=== PATIENT | female | born 1955 | race Two or more races ===

== ENCOUNTER → 2024-02-06 | Outpatient (CLI) | payer MEDICARE, SELFPAY ==
--- NOTE | 2024-02-06 09:00 | XR_ITS ---
Examination: Screening digital mammography, bilateral Computer aided detection 3-D breast Tomosynthesis, bilateral Date and time of exam: February 06, 2024 0817 hours Compared to mammograms dating to December 30, 2016 Indication: Screening Technique: Nonmagnified MLO, CC views of the breasts to been obtained, reconstructed from 3-D Tomosynthesis images. R2 computer aided detection program utilized for evaluation of suspicious masses and/or abnormal calcifications. 3-D Tomosynthesis images obtained. Findings: Scattered areas of fibroglandular density. Benign calcifications. No interval suspicious masses Impression: BI-RADS category II: Benign Findings. Recommend 1 year follow-up mammogram.
== END | disposition home or self-care (01) ==
LOC: CDIM 08:09
PROVIDERS: Referring Provider Physician Assistant; Visit Provider Physician Assistant
DX: Z12.31 Encounter for screening mammogram for malignant neoplasm of breast (principal); R92.323 Mammographic fibroglandular density, bilateral breasts; R92.1 Mammographic calcification found on diagnostic imaging of breast
CPT/HCPCS: 77063; 77067

== ENCOUNTER → 2024-03-28 | Outpatient (CLI) | payer MEDICARE, SELFPAY ==
--- NOTE | 2024-03-28 10:26 | XR_ITS ---
Examination: Thoracic spine 3 views Technique one AP lateral coned lateral upper dorsal spine 3 views Exam date and time: March 28, 2024 1038 hours INDICATIONS: Mid back pain 5 years getting worse. FINDINGS: Severe osteopenia Thoracic dextroscoliosis 10 degrees Mild thoracic spondylosis No acute thoracic fracture Mild to moderate diffuse thoracic degenerative disc disease IMPRESSION: Mild to moderate diffuse thoracic degenerative disc disease
== END | disposition home or self-care (01) ==
PROVIDERS: PCP Physician Assistant; Referring Provider Physician Assistant; Visit Provider Physician Assistant
DX: M51.34 Other intervertebral disc degeneration, thoracic region (principal)
CPT/HCPCS: 72072

== ENCOUNTER → 2024-09-10 | Outpatient (CLI) | payer MEDICARE, SELFPAY ==
--- NOTE | 2024-09-10 13:20 | XR_ITS ---
Examination: Bone densitometry Date and time of exam:The second 2024 1401 hours INDICATIONS: This age 44, personal history osteopenia Technique: Lumbar spine and hip total bone mineralization values of an calculated. Peak reference and age match control results have been displayed. Findings: Lumbar spine total bone mineralization is0.827 gm/cm2. This is 2.0 standard deviations below peak reference. This is an standard deviations above age-matched controls. Hip total bone mineralization is 0.748 gm/cm2 This is 0.6 standard deviations below peak reference. This is 0.1 standard deviations below age-matched controls Impression: There is osteopenia based on lumbar spine measurements. There is osteopenia based on hip measurements Lumbar mineralization is increase 0.6% compared with September 28, 2021. Hip mineralization is increase 4.9% compared with September 28, 2021
== END | disposition home or self-care (01) ==
PROVIDERS: PCP Physician Assistant; Referring Provider Physician Assistant; Visit Provider Physician Assistant
DX: Z13.820 Encounter for screening for osteoporosis (principal); M85.89 Other specified disorders of bone density and structure, multiple sites
CPT/HCPCS: 77080

== ENCOUNTER → 2024-09-25 | Outpatient (CLI) | payer MEDICARE, MEDICAID, SELFPAY ==
--- NOTE | 2024-09-25 12:47 | XR_ITS ---
Examination: Right knee 2 views Technique one AP lateral right knee 2 views Date and time: September 25, 2024 1311 hours Comparison October 13, 2010 INDICATIONS: Right knee pain 6 months. FINDINGS: Moderate osteopenia. Minimal narrowing medial joint space No fracture. Small knee effusion IMPRESSION: Minimal narrowing medial joint space
== END | disposition home or self-care (01) ==
PROVIDERS: PCP Nurse Practitioner Primary Care; Referring Provider Nurse Practitioner Primary Care; Visit Provider Nurse Practitioner Primary Care
DX: M25.861 Other specified joint disorders, right knee (principal)
CPT/HCPCS: 73560

== ENCOUNTER → 2024-10-03 | Outpatient (CLI) | payer MEDICARE, MEDICAID, SELFPAY ==
--- NOTE | 2024-10-03 12:42 | XR_ITS ---
Examination: Duplex scan of the lower extremity, unilateral right Date and time of exam: October 03, 2024 1302 hours INDICATIONS: Right leg filling and pain beginning 2 months ago Technique: Duplex scan of the extremity veins using B-mode/grayscale imaging and Doppler spectral analysis and color flow Attention is directed to internal echogenicity, compression and augmentation involving these veins, color flow assessment, spectral analysis Findings: Major deep venous structures in the extremity demonstrate normal course and caliber. There is no evidence of deep vein thrombosis. Normal color flow and spectral analysis Impression: Negative for DVT..
== END | disposition home or self-care (01) ==
PROVIDERS: PCP Physician Assistant; Referring Provider Nurse Practitioner Primary Care; Visit Provider Nurse Practitioner Primary Care
DX: M79.661 Pain in right lower leg (principal)
CPT/HCPCS: 93971

== ENCOUNTER 2024-10-13 13:19 | Inpatient (IN) | payer MEDICARE, MEDICAID, SELFPAY ==
--- NOTE | 2024-10-13 13:21 | EKG_ITS ---
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
--- NOTE | 2024-10-13 13:22 | EDNOTE_ITS ---
<Statement entered by Gely Crenshaw MD - 10/13/24 17:22> As co-signing physician, I was present and available for consult prn. I concur with the plan and care as documented by the midlevel provider. ED General RME/HPI General Chief complaint: Dizziness Stated complaint: WEAKNESS, DIZZINESS Time Seen by Provider: 10/13/24 13:21 Arrival date/time: 10/13/24 13:19 CC: Generalized weakness nausea without vomiting HPI onset 20 minutes ago EMS reports stable vital signs although reports pressures of 80 over palp prior to fire and EMS arrival. Patient is awake alert oriented denies chest pain shortness of breath difficulty breathing or headache. Related Data Home Medications ?Medication ?Instructions ?Recorded ?Confirmed levothyroxine 50 mcg tablet 50 mcg PO QDAY 11/12/17 gemfibrozil 600 mg tablet 600 mg PO BID 05/03/1805/03 Allergies Allergy/AdvReac Type Severity Reaction Status Date / Time codeine Allergy Intermediate ABDOMINAL Verified 10/13/24 13:32 PAIN Review of Systems Review of Systems Narrative Review of Systems: GEN: No fever, no chills, no weight loss EYES: No discharge, no visual changes, no pain HEENT: No ear pain, no congestion, no sore throat PULM: No shortness of breath, no cough, no congestion CV: No chest pain, no dyspnea on exertion, no palpitations GI: No nausea, no vomiting, no diarrhea, no pain, no constipation : No frequency, no urgency, no dysuria MUSC/SKEL: No joint pain, no back pain SKIN: No rash PSYCH: No hallucinations, no depression HEME/LYMPH: No easy bleeding or bruising tendencies NEURO: + weakness, no headache Past Medical History Past Medical History NEUROLOGIC: Negative Seizures CARDIAC: Positive Cardiac Disorders, Hypercholesterolemia and Hypertension; Negative Congestive Heart Failure RESPIRATORY: Negative Chronic Obstructive Pulmonary Disease (COPD) GASTROINTESTINAL: Negative Gastrointestinal Disorders GENITOURINARY: Negative Renal Disease ENDOCRINE: Negative Diabetes Mellitus Type 1 or Diabetes Mellitus Type 2 OTHER HISTORY: Negative Blood Transfusions, Blood Transfusion Reaction or Anesthesia Reactions Surgical History SURGICAL: Positive Section Social History SMOKING STATUS: Light (< 1 pack/day) ED Exam Narrative Physical exam: [General: Appears not in any acute distress Head normocephalic HEENT: Within acceptable limits Neck is supple nontender Chest equal chest rise nontender to palpation Respiratory: Clear to auscultation no wheezes crackles or rubs CV: Rate rhythm is regular no murmurs rubs or clicks Abdomen is soft nontender no masses positive bowel sounds all 4 quadrants Back: No CVA tenderness no spinous process tenderness from cervical spine thoracic and lumbar spine Skin: Intact no petechiae rash induration ulceration or crepitus Extremities: Moving all extremity against resistance cap refill less than 2 seconds neurosensory intact. No lower extremity edema Neuro: Awake alert oriented x3 Glascow coma 15 no focal deficits] Course Course Course Narrative: The patient's case discussed with Dr. Doe cardiology and then Dr. Gray, attending with his residents, who agreed except the patient for admission. Patient's condition, laboratory results and plan discussed with the patient and family member at bedside who both agreed to the admission. Quality Measures none Orders Category Date Time Status EKG (ED ONLY) *Do not use* NOW Care 10/13/24 13:21 Completed Consult to Cardiology Stat Cons 10/13/24 14:54 Ordered EKG (ED Only) Stat Exams 10/13/24 13:21 Ordered XR chest 1V Stat Exams 10/13/24 14:29 Completed B-Type Natriuretic Peptide Stat Lab 10/13/24 13:34 Completed CBC Stat Lab 10/13/24 13:34 Completed Comprehensive Metabolic Panel Stat Lab 10/13/24 13:34 Completed Drug Screen,Urine Stat Lab 10/13/24 13:21 Ordered LDH (Lactate Dehydrogenase) Stat Lab 10/13/24 13:34 Completed Magnesium Stat Lab 10/13/24 13:34 Completed Partial Thromboplastin Time Stat Lab 10/13/24 13:34 Received Prothrombin Time with INR Stat Lab 10/13/24 13:34 Received Thyroid Stimulating Hormone Stat Lab 10/13/24 13:34 Completed Troponin I Stat Lab 10/13/24 13:34 Completed Urinalysis Stat Lab 10/13/24 13:21 Ordered Aspirin Chew Med 10/13/24 14:24 Discontinued 324 mg PO X1 ONE Vital Signs Vital signs: Vital Signs Temperature 97.9 F 10/13/24 13:45 Pulse Rate 66 10/13/24 13:45 Respiratory Rate 18 10/13/24 13:45 Blood Pressure 123/68 10/13/24 13:45 Pulse Oximetry (%) 95 10/13/24 13:45 Oxygen Delivery Method Room Air 10/13/24 13:45 Discharge Plan Plan Patient Disposition: Other Care w/in Hosp ([facility]) Patient condition on transfer: Stable Prescriptions/Referrals Prescriptions/Med Rec: No Action levothyroxine 50 mcg Tablet 50 mcg PO QDAY gemfibrozil 600 mg Tablet 600 mg PO BID Referrals: Radha Moreno PA-C [Primary Care Provider] - In 1 week Problem List Clinical Impression: Elevated troponin Patient/Caregiver Discharge Instructions Print Language: Welsh Stand Alone Forms: Jolly Award Info., Patient Portal Info Letter PA/CHEMICAL PROCESS ENGINEER Supervising Physician PA/CHEMICAL PROCESS ENGINEER Supervising Physician: Yahir Liu ENP MDM Clinical Information Provided by patient and EMS Medical Records Reviewed [facility] Meds/Rx Considered, not Ordered None Labs/Rad/Tests considered, not Ordered None Chronic Illness/Social Conditions Add or document further as needed: Hypothyroidism EKG EKG Interpretation narrative: EKG performed at 1400 shows a ventricular rate of 68 [place] interval 171 QRS of 95 QTc of 427 this is sinus rhythm left axis deviation. No significant changes when compared to an EKG of 2018 Lab Interpretation Labs: interpreted by me Lab(s) interpretation(s): CBC shows a mild leukocytosis of 13 no anemia thrombocytopenia CMP shows no electrolyte imbalances renal impairment transaminitis or T. bili elevation Troponin of 0.255 Imaging Provider imaging interpretation(s): Chest x-ray is interpreted me read by radiology as negative for any acute finding Medication Administration(s) none Medication Administration History Discontinued Medications Aspirin (Aspirin 81 Mg Chew) 324 mg PO X1 ONE Stop: 10/13/24 14:25 Last Admin: 10/13/24 14:30 Dose: 324 mg Documented By: GISELA Diagnosis Differential diagnosis: ACS [place] pneumonia Most likely dx, and/or detailed dx discussion: Patient's case discussed with Dr. Doe once the patient admitted for hospitalist and he will follow-up he is requesting chewable aspirin but no other antiplatelet therapy.
[2024-10-13 13:27] VITALS: PULSE 68; RESP 18; O2SAT 99; BMI 25.4
[2024-10-13 13:45] VITALS: BP 123/68; PULSE 66; RESP 18; TEMP 36.6; O2SAT 95
[2024-10-13 13:50] LABS: Basophils # (Auto) 0.1 Thou/mm3 (0.0-0.2); Basophils % (Auto) 1 % (0-2.5); Eosinophils # (Auto) 0.2 Thou/mm3 (0.0-0.5); Eosinophils % (Auto) 2 % (0-10); Hematocrit 45.0 % (36.0-46.0); Hemoglobin 15.4 g/dL (12.0-16.0); Immature Granulocytes Auto 0.05 Thou/mm3 (0.00-0.00); Lymphocytes # (Auto) 3.8 Thou/mm3 (1.0-4.8); Lymphocytes % (Auto) 29 % (10-50); Mean Corpuscular HGB Conc 34.2 g/dl (31.0-37.0); Mean Corpuscular Hemoglobin 31.3 pg (25.0-35.0); Mean Corpuscular Volume 92 fL (80-100); Monocytes # (Auto) 1.5 Thou/mm3 (0.0-0.8); Monocytes % (Auto) 11 % (0-12); Neutrophils # (Auto) 7.3 Thou/mm3 (1.8-7.7); Neutrophils % (Auto) 56 % (37-80); Nucleated Red Blood Cell # 0.00 Thou/mm3 (0.00-0.00); Nucleated Red Blood Cell % 0 /100 WBC (0); Platelet Count 527 Thou/mm3 (140-440); RDW Standard Deviation 48.0 fL (36.4-46.3); Red Blood Count 4.92 Miln/mm3 (4.00-5.20); White Blood Count 13.0 Thou/mm3 (3.6-11.0)
[2024-10-13 14:10] LABS: B-Type Natriuretic Peptide 33 pg/mL (0-100)
[2024-10-13 14:11] LABS: Alanine Aminotransferase 19 U/L (10-49); Albumin, Serum 4.5 gm/dL (3.4-4.8); Albumin/Globulin Ratio 1.6 (1.2-2.2); Alkaline Phosphatase 77 U/L (46-116); Anion Gap 12 (7-16); Aspartate Amino Transferase 26 U/L (0-34); BUN/Creatinine Ratio 19 Ratio (12-20); Bilirubin,Total 1.0 mg/dL (0.3-1.2); Blood Urea Nitrogen 15 mg/dL (9-23); Calcium 9.5 mg/dL (8.3-10.6); Calcium (Corrected) 9.5 mg/dL (8.5-10.1); Carbon Dioxide 24.3 mMol/L (20.0-31.0); Chloride 105 mMol/L (98-107); Creatinine (Component) 0.8 mg/dL (0.6-1.3); Estimated Creatinine Clearance 52.6 mL/min (>60); Globulin 2.9 gm/dL (2.3-3.5); Glucose 117 mg/dL (74-106); LDH (Lactate Dehydrogenase) 205 U/L (120-246); Magnesium 1.7 mg/dL (1.6-2.6); Osmolality,Calculated 283 (275-295); Potassium 3.7 mMol/L (3.4-5.1); Sodium 141 mMol/L (136-145); Total Protein 7.4 gm/dL (5.7-8.2); eGFR > 60 See Note
[2024-10-13 14:13] LABS: Troponin I 0.255 ng/mL (0.0-0.045)
--- NOTE | 2024-10-13 14:23 | PC.NURSE ---
Patient had pain from waist down, denies chest pain. Troponin elevated. 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 Patient denies any shortness of breath, patient has history of high blood pressure and high cholesterol as well as cholesytectomy.
--- NOTE | 2024-10-13 14:29 | XR_ITS ---
Examination: AP chest single view Technique one AP portable upright chest single view Date and time: October 14, 2024 1436 hours INDICATIONS: Onset chest pain today. FINDINGS: Stable pulmonary nodule left upper lobe compared with February 27, 2023. Normal heart size. No interval pneumonia or pulmonary edema. Prominent osteopenia IMPRESSION: No interval pneumonia or pulmonary edema
[2024-10-13] MEDS: ASPIRIN 81 MG CHEW 324 MG PO (14:30)
[2024-10-13 14:58] LABS: Thyroid Stimulating Hormone 1.17 uIU/mL (0.55-4.78)
[2024-10-13 16:14] LABS: INR 1.1 (0.9-1.3); Partial Thromboplastin Time 30.3 Seconds (22.0-36.0); Prothrombin Time 12.2 Seconds (9.0-12.2)
--- NOTE | 2024-10-13 16:41 | ESHP_ITS ---
<Statement entered by Dereck Gray MD - 10/22/24 14:33> I reviewed above note and agree with findings and plans. I have also personally examined the patient with medicine team and went over assessment and plan with medical team including international student advisor and resident physician. <Statement entered by Renaldo Reilly MD - 10/13/24 18:51> Patient was seen and examined at bedside. I agree on the assessment and plan on this note as documented by resident Christiana Fischer PGY1. Patient is a 69-year-old female with past medical history of osteoporosis, osteoarthritis, hypothyroidism, hypertension, hyperlipidemia, GERD, chronic pain on gabapentin possible peripheral arterial disease who presented to the emergency department with a chief complaint of cardiac chest pain, was found to have elevated troponin at 0.255, EKG showed no acute ST-T changes, cardiology was consulted in the emergency department, recommended admission for trending troponin and further workup. Patient otherwise complains of generalized body pain secondary to arthritis, did also endorse some dizziness, diaphoresis and weakness otherwise ROS negative. We will admit patient for ACS workup, will trend troponins ordered echocardiogram. Patient started on daily aspirin and atorvastatin, resumed home dose levothyroxine and home dose gabapentin. Will do cardiac risk stratification, TSH was within normal limits in ED, will obtain LDL and A1c. Patient will be admitted to telemetry for ACS workup, cardiology consulted. Case discussed with attending Dr. Renaldo Reilly MD PGY-2 Documentation for date of: 10/13/24 HPI History of Present Illness Chief complaint: chest pain, dizziness and weakness History of present illness: Mrs.Ana Howard is a 69-year-old female with past medical history of of osteoporosis, osteoarthritis, hypothyroidism, hypertension, GERD, chronic knee pain sleep was brought in by EMS to the ED on 10/13/24 for chest pain, weakness, dizziness. Patient reports that this morning around 10;45 am while she was outside cleaning the backyard she felt retrosternal chest pain, nonradiating, intermittent pain for 20 minutes each episode lasting about 1 minute. Patient reports this is the first time feeling this symptoms. After the episode she went inside to sit down and took her blood pressure and the readings were 90/40. Associated symptoms was diaphoresis, weakness, dizziness with no fall and no loss of consciousness also nausea with no vomiting. She denies shortness of breath, orthopnea and PND. Of note, patient reports knee pain for about 1 year but noticed right knee swelling 3 months ago. ED course : - Initial Vitals were BP123/68, pulse 66, temp 97.9, O2 sat 96 on RA - labs significant for WBCs 13.0 I, RDW 14.0, platelet count 527, glucose 117, t roponin I 0.255. Cardiology was consulted and recommend to continue to trending trops. - EKG showed no acute ST changes, left axis on deviation, no specific T-wave abnormality - Imaging included CXR findings of stable pulmonary nodule left upper lobe compared with February 27, 2023. Normal heart size. Prominent osteopenia In ED, pt was given aspirin 324 mg PO x1. Patient admitted for elevated troponin, possible NSTEMI workup and management. Review of systems The review of system otherwise negative except that is mentioned above. Past medical history: As above Family history: not pertinent Surgical history: , cholecystectomy Social history: 5 cigarettes/day for 50 years, denies alcohol intake denies, illicit drug use Allergies: Seasonal allergies Current medication: pending med rec Exam Vital Signs Temp Pulse Resp BP Pulse Ox O2 Del Method 97.9 F 66 18 123/68 95 Room Air 10/13/24 13:45 10/13/24 13:45 10/13/24 13:45 10/13/24 13:45 10/13/24 13:45 10/13/24 13:45 Narrative Exam Physical Exam: General: Alert, no acute distress. Skin: Warm, dry, intact, no obvious rash. Head: Normocephalic, atraumatic. Eye: Normal conjunctiva, PERRL. Cardiovascular: Regular rate and rhythm, no murmur, +S1/S2. Respiratory: Lungs are clear to auscultation, respirations unlabored, no crackles, no wheezing. Gastrointestinal: Soft, nontender, non-distended. No guarding or rebound tenderness. Extremities: right knee edema, No edema, no cyanosis, no clubbing. 2+ radial pulse bilaterally, 2+ pedal pulse bilaterally. Neuro: No focal deficits observed. Conversant, moving all extremities. Psychiatric: Cooperative, appropriate affect. Results: Labs 10/13/24 13:34 10/13/24 13:34 Labs: Short CBC 10/13/24 Range/Units 13:34 WBC 13.0 H (3.6-11.0) Thou/mm3 Hgb 15.4 (12.0-16.0) g/dL Hct 45.0 (36.0-46.0) % Plt Count 527 H (140-440) Thou/mm3 BMP 10/13/24 13:34 Sodium 141 Potassium 3.7 Chloride 105 Carbon Dioxide 24.3 BUN 15 Creatinine 0.8 Glucose 117 H Calcium 9.5 Cardiac Enzymes 10/13/24 Range/Units 13:34 Troponin I 0.255 H* (0.0-0.045) ng/mL Liver Function 10/13/24 Range/Units 13:34 Total Bilirubin 1.0 (0.3-1.2) mg/dL AST 26 (0-34) U/L ALT 19 (10-49) U/L Alkaline Phosphatase 77 (46-116) U/L Albumin 4.5 (3.4-4.8) gm/dL Quality Measures Quality Measures none Advance care planning discussed with:: patient and child Medications Home Medications and Allergies Home Medications ?Medication ?Instructions ?Recorded ?Confirmed ?Type levothyroxine 50 mcg tablet 50 mcg PO QDAY 11/12/17 History gemfibrozil 600 mg tablet 600 mg PO BID 05/03/1805/03 History Allergies Allergy/AdvReac Type Severity Reaction Status Date / Time codeine Allergy Intermediate ABDOMINAL Verified 10/13/24 13:32 PAIN Visit Medications Acetaminophen (Acetaminophen 325 Mg Tablet) 650 mg PO Q6H PRN PRN Reason: PAIN (1-3) & FEVER > 100.4 Stop: 11/12/24 16:08 Aspirin (Aspirin Ec 81 Mg Tabec) 81 mg PO QDAY DAVONTE Stop: 11/13/24 08:59 Atorvastatin Calcium (Atorvastatin Calcium 20 Mg Tablet) 40 mg PO HS DAVONTE Stop: 11/12/24 20:59 Gabapentin (Gabapentin 100 Mg Capsule) 100 mg PO TID DAVONTE Stop: 11/12/24 21:59 Heparin Sodium (Porcine) (Heparin Sod Inj 5000 Unit/Ml Vial) 5,000 unit SC Q12HR DAVONTE Stop: 10/27/24 20:59 Levothyroxine Sodium (Levothyroxine Sodium 88 Mcg Tablet) 88 mcg PO ACBR DAVONTE Stop: 11/13/24 05:59 Ondansetron HCl (Ondansetron Inj 2 Mg/Ml Inj 2 Ml) 4 mg IVP Q6H PRN; Protocol PRN Reason: NAUSEA OR VOMITING Stop: 11/12/24 16:08 Pantoprazole Sodium (Pantoprazole 40 Mg Tablet) 40 mg PO QDAY DAVONTE Stop: 11/13/24 08:59 Sennosides (Senna Tablet) 1 tab PO QDAY DAVONTE; Protocol Stop: 11/13/24 08:59 Discontinued Medications Aspirin (Aspirin 81 Mg Chew) 324 mg PO X1 ONE Stop: 10/13/24 14:25 Last Admin: 10/13/24 14:30 Dose: 324 mg Assessment & Plan Plan Mrs.Ana Howard is a 69-year-old female with past medical history of of osteoporosis, osteoarthritis, hypothyroidism, hypertension, GERD, chronic knee pain sleep was brought in by EMS to the ED on 10/13/24 for chest pain, weakness, dizziness. Admitted elevated troponin, NSTEMI type 1 vs NSTEMI type 2 work-up and management. #Elevated troponin # ACS-NSTEMI type 1 vs NSTEMI type 2 Patient presents with retrosternal, nonradiating intermittent chest pain.Associated symptoms nausea, diaphoresis, weakness, dizziness during the episode. Troponin on admission is 0.255 repeat troponin is 0.292. EKG showed left axis deviation, however compared to last EKG there is no significant changes. Cardiology was consulted and recommended to continue to monitor troponin and order Echo. Plan - Cardiology consulted, continue to trend troponin q6h - Aspirin 81mg daily - Hold Plavix and Heparin GTT per cardiology recs - If troponin continues to increase start heparin drip and contact cardiology - Start atorvastatin 40 mg - Ordered Echo STAT - CBC AM - BMP AM - Strict I's and O - Daily weight monitoring #GERD w/o esophagitis Patient is on famotidine at home however pending med rec. Plan - Start Protonix 40 mg po daily - Follow-up med rec in A.m. # Hypothyroidism # Elevated SILVIA titers Patient on home meds levothyroxine for hypothyroidism. Patient denies a diagnosis of SLE and Rheumatoid arthritis.Previous SILVIA titers in 2020 was elevated 1:640 Plan - Continue home med, levothyroxine 88mcg PO ACBR tablet #Chronic knee pain 2/2 to possible osteoarthritis #Osteoporosis #PAD Patient have a history of chronic knee pain and osteoarthritis. She she is on celecoxib at home celecox. Doppler ultrasound was done on 10/03/24 impression is negative for DVT. Knee x-ray dated 09/25/2024 findings was moderate osteopenia, small knee effusion. Previous CTA showed possible peripheral artery disease however patient denies diagnosis of PAD. Plan - Start acetaminophen 650 mg po PRN - Plan to start on maintenance gabapentin #Hypertension #Dizziness/weakness and nausea Patient have a history of diagnosed hypertension. Patient felt dizziness and weakness weakness nausea without vomiting while she was outside in the morning sun. She was brought inside by her who measured patient blood pressure to be 90/40. Plan - pending med rec - Continue to monitor blood pressure #Leukocytosis Likely reactive Plan - Continue to monitor CBC #Hyperglycemia On admission patient fingerstick blood glucose was 126, she denies any history of diabetes mellitus Plan - Follow-up A1c AM Hospital Management: Lines: Peripheral lines Diet: cadiac Bowel:Senna GI prophylaxis: Pantoprazole DVT Prophylaxis: heparin Sub Q Disposition:Telemetry for ACS- NSTEMI workup CODE STATUS: Full code Patient seen and assessed under supervision of attending physician Dr. Gray and discuss with senior resident Dr. Reilly PGY-2 Christiana Fischer MD PGY-1, Internal Medicine
[2024-10-13 16:45] VITALS: BP 132/77; PULSE 59; RESP 16; TEMP 36.5; O2SAT 96
[2024-10-13 17:05] LABS: Collection Type, Urine Clean Catch
[2024-10-13 17:07] LABS: Troponin I 0.292 ng/mL (0.0-0.045)
[2024-10-13 17:24] LABS: Bilirubin,Urine Negative (Negative); Blood,Urine Negative (Negative); Clarity,Urine Clear (Clear/Hazy); Color,Urine Yellow (Lt Yel-Yel); Glucose, Urine Negative (Negative); Hyaline Casts,Urine < 1 /hpf (0-1); Ketones,Urine Negative (Negative); Leukocyte Esterase,Urine Negative (Negative); Nitrite,Urine Negative (Negative); PH,Urine 6.5 (5.0-7.0); Protein,Urine Negative (Neg - Trace); RBC,Urine 1 /hpf (0-3); Specific Gravity,Urine 1.020 (1.001-1.035); Squamous Epithelial Cell,Urine 1 /hpf (0-5); Urobilinogen,Urine Negative mg/dL (0.0-1.0); WBC,Urine 1 /hpf (0-5)
[2024-10-13 18:11] VITALS: BP 124/67; PULSE 62; RESP 15; TEMP 36.7; O2SAT 98
[2024-10-13 18:32] LABS: Amphetamine/Methamp Scrn,U Negative (Negative); Barbiturate Screen,Urine Negative (Negative); Benzodiazepines Screen,Urine Positive (Negative); Benzoylecgonine Screen, Ur Negative (Negative); Fentanyl Screen,Urine Negative (Negative); Opiate Screen,Urine Negative (Negative); THC Screen,Urine Negative (Negative)
[2024-10-13 19:12] VITALS: PULSE 60; RESP 16; O2SAT 96
--- NOTE | 2024-10-13 20:47 | PC.NURSE ---
report called to jaclyn bhatia from [facility]
[2024-10-13] MEDS: HEPARIN SOD INJ 5000 UNIT/ML VIAL SC (20:56)
[2024-10-13] MEDS: ATORVASTATIN CALCIUM 20 MG TABLET 40 MG PO (20:56)
[2024-10-13] MEDS: GABAPENTIN 100 MG CAPSULE PO (22:42)
[2024-10-13 22:55] LABS: Troponin I 0.635 ng/mL (0.0-0.045)
[2024-10-13 23:16] VITALS: BP 123/63; PULSE 60; RESP 16; TEMP 36.6; O2SAT 95
[2024-10-14] VITALS (7 sets, daily range): BP systolic 105–139; BP diastolic 57–76; PULSE 59–85; RESP 15–20; TEMP 35.9–36.4; O2SAT 93–95; BMI 26.6
[2024-10-14] MEDS: ACETAMINOPHEN 325 MG TABLET 650 MG PO ×2 (00:39→12:26)
[2024-10-14] MEDS: LEVOTHYROXINE SODIUM 88 MCG TABLET PO (05:17)
[2024-10-14] MEDS: GABAPENTIN 100 MG CAPSULE PO ×3 (05:17→21:33)
[2024-10-14 05:56] LABS: Basophils # (Auto) 0.1 Thou/mm3 (0.0-0.2); Basophils % (Auto) 1 % (0-2.5); Eosinophils # (Auto) 0.4 Thou/mm3 (0.0-0.5); Eosinophils % (Auto) 4 % (0-10); Hematocrit 44.1 % (36.0-46.0); Hemoglobin 14.8 g/dL (12.0-16.0); Immature Granulocytes Auto 0.03 Thou/mm3 (0.00-0.00); Lymphocytes # (Auto) 4.4 Thou/mm3 (1.0-4.8); Lymphocytes % (Auto) 41 % (10-50); Mean Corpuscular HGB Conc 33.6 g/dl (31.0-37.0); Mean Corpuscular Hemoglobin 30.7 pg (25.0-35.0); Mean Corpuscular Volume 92 fL (80-100); Monocytes # (Auto) 1.5 Thou/mm3 (0.0-0.8); Monocytes % (Auto) 14 % (0-12); Neutrophils # (Auto) 4.4 Thou/mm3 (1.8-7.7); Neutrophils % (Auto) 41 % (37-80); Nucleated Red Blood Cell # 0.00 Thou/mm3 (0.00-0.00); Nucleated Red Blood Cell % 0 /100 WBC (0); Platelet Count 472 Thou/mm3 (140-440); RDW Standard Deviation 48.6 fL (36.4-46.3); Red Blood Count 4.82 Miln/mm3 (4.00-5.20); White Blood Count 10.8 Thou/mm3 (3.6-11.0)
[2024-10-14 06:12] LABS: Glucose Estimated Average 126 mg/dL (80-131); Hemoglobin A1C 6.0 % Hgb (4.8-6.0)
[2024-10-14 06:41] LABS: Alanine Aminotransferase 16 U/L (10-49); Albumin, Serum 4.0 gm/dL (3.4-4.8); Albumin/Globulin Ratio 1.5 (1.2-2.2); Alkaline Phosphatase 71 U/L (46-116); Anion Gap 10 (7-16); Aspartate Amino Transferase 23 U/L (0-34); BUN/Creatinine Ratio 22 Ratio (12-20); Bilirubin,Total 1.3 mg/dL (0.3-1.2); Blood Urea Nitrogen 13 mg/dL (9-23); Calcium 9.2 mg/dL (8.3-10.6); Calcium (Corrected) 9.2 mg/dL (8.5-10.1); Carbon Dioxide 23.6 mMol/L (20.0-31.0); Cardiac Risk Estimate 4.0 RATIO (3.7-5.6); Chloride 107 mMol/L (98-107); Cholesterol 136 mg/dL (132-200); Creatinine (Component) 0.6 mg/dL (0.6-1.3); Estimated Creatinine Clearance 70.1 mL/min (>60); Globulin 2.6 gm/dL (2.3-3.5); Glucose 93 mg/dL (74-106); HDL Cholesterol 34 mg/dL (40-60); LDL Cholesterol,Calculated 61 mg/dL (0-130); Magnesium 1.6 mg/dL (1.6-2.6); Osmolality,Calculated 281 (275-295); Phosphorous 4.4 mg/dL (2.4-5.1); Potassium 3.5 mMol/L (3.4-5.1); Sodium 141 mMol/L (136-145); Total Protein 6.6 gm/dL (5.7-8.2); Triglycerides 207 mg/dL (30-150); eGFR > 60 See Note
[2024-10-14 06:46] LABS: Troponin I 0.945 ng/mL (0.0-0.045)
--- NOTE | 2024-10-14 07:48 | PD.IMCONS ---
HPI Data of Consult Requesting Physician: Silvia Demarco MD Primary Care Provider: Radha Moreno PA-C Consult Narrative History of present illness: This is a 69-year-old female with past medical history of osteoporosis, osteoarthritis, hypothyroidism, hypertension, hyperlipidemia, GERD, chronic pain on gabapentin possible peripheral arterial disease pt was seen in the ER with atypical chest pain, weakness, dizziness initial EKG did not show any ischemic changes troponin was .2 ; 0.6, 0.9 currently pt appears comfortable cc:: cc: Silvia Demarco MD Meds Home Medications and Allergies Home Medications ?Medication ?Instructions ?Recorded ?Confirmed ?Type levothyroxine 50 mcg tablet 50 mcg PO QDAY 11/12/17 10/13/24 History celecoxib 100 mg capsule 100 mg PO Q24H 10/13/24 10/13/24 History cetirizine 10 mg tablet 10 mg PO QDAY 10/13/24 10/13/24 History famotidine 20 mg tablet 20 mg PO Q12H 10/13/24 10/13/24 History gabapentin 100 mg capsule 100 mg PO Q8H 10/13/24 10/13/24 History hydrochlorothiazide 12.5 mg tablet 12.5 mg PO Q24H 10/13/24 10/13/24 History simvastatin 20 mg tablet 20 mg PO .QHS 10/13/24 10/13/24 History valsartan 40 mg tablet 40 mg PO QDAY 10/13/24 10/13/24 History Allergies Allergy/AdvReac Type Severity Reaction Status Date / Time codeine Allergy Intermediate ABDOMINAL Verified 10/13/24 13:32 PAIN Exam Vital Signs Temp Pulse Resp BP Pulse Ox O2 Del Method 97.5 F 66 17 107/59 L 95 Room Air 10/14/24 04:00 10/14/24 04:00 10/14/24 04:00 10/14/24 04:00 10/14/24 04:00 10/14/24 04:00 Routine HEENT Exam Head: Present normocephalic and atraumatic Eye: Present EOMI and PERRL ENT: Present mucous membranes moist Routine Neck Exam Neck: Present supple and trachea midline Routine Respiratory Exam Respiratory: Present chest non-tender, lungs clear, normal breath sounds and no resp distress Routine Cardiovascular Exam Cardiovascular: Present RRR Routine Abdominal Exam Abdominal: Present soft and normoactive bowel sounds Routine Extremities Exam Extremities: Present full ROM Routine Skin Exam Skin: Present intact, dry and warm Routine Neurological Exam Neurological: Present alert, oriented X3 and CN II-XII intact Routine Psychiatric Exam Psychiatric: Present normal affect and normal thought process Results Labs 10/14/24 04:43 10/14/24 04:43 Labs: Short CBC 10/13/24 10/14/24 Range/Units 13:34 04:43 WBC 13.0 H 10.8 (3.6-11.0) Thou/mm3 Hgb 15.4 14.8 (12.0-16.0) g/dL Hct 45.0 44.1 (36.0-46.0) % Plt Count 527 H 472 H D (140-440) Thou/mm3 BMP 10/13/24 10/14/24 13:34 04:43 Sodium 141 141 Potassium 3.7 3.5 Chloride 105 107 Carbon Dioxide 24.3 23.6 BUN 15 13 Creatinine 0.8 0.6 Glucose 117 H 93 Calcium 9.5 9.2 Cardiac Enzymes 10/13/24 10/13/24 10/13/24 Range/Units 13:34 16:33 22:27 Troponin I 0.255 H* 0.292 H* 0.635 H* D (0.0-0.045) ng/mL 10/14/24 Range/Units 04:43 Troponin I 0.945 H* D (0.0-0.045) ng/mL Liver Function 10/13/24 10/14/24 Range/Units 13:34 04:43 Total Bilirubin 1.0 1.3 H (0.3-1.2) mg/dL AST 26 23 (0-34) U/L ALT 19 16 (10-49) U/L Alkaline Phosphatase 77 71 (46-116) U/L Albumin 4.5 4.0 D (3.4-4.8) gm/dL Urine 10/13/24 Range/Units 17:00 Urine Color Yellow (Lt Yel-Yel) Urine Clarity Clear (Clear/Hazy) Urine pH 6.5 (5.0-7.0) Ur Specific [place] 1.020 (1.001-1.035) Urine Protein Negative (Neg - Trace) Urine Glucose (UA) Negative (Negative) Assessment and Plan Assessment and plan (1) Elevated troponin: Status: Acute (2) CAD (coronary artery disease): Status: Acute (3) Back pain: Status: Acute Additional Assessment & Plan Additional Plan: continue current med pt has multiple risk factors for CAD troponin mildly elevated will plan for heart cath
[2024-10-14] MEDS: HEPARIN SOD INJ 5000 UNIT/ML VIAL SC (08:03)
[2024-10-14] MEDS: PANTOPRAZOLE 40 MG TABLET PO (08:03)
[2024-10-14] MEDS: ASPIRIN EC 81 MG TABEC PO (08:03)
--- NOTE | 2024-10-14 08:41 | PC.SS ---
Update: Patient's troponin levels elevated. Cardiology recommendations are pending.
[2024-10-14] MEDS: Magnesium Sulfate 4 GM Ivpb 4 GM/50 ML BAG IV (08:45)
[2024-10-14] MEDS: CLOPIDOGREL BISULFATE 75 MG TABLET 300 MG PO (08:45)
[2024-10-14] MEDS: POTASSIUM CHLORIDE 10% 20 MEQ/15 ML UDC 40 MEQ PO (08:45)
[2024-10-14 11:12] LABS: Troponin I 0.726 ng/mL (0.0-0.045)
[2024-10-14 11:21] LABS: INR 1.1 (0.9-1.3); Partial Thromboplastin Time 33.4 Seconds (22.0-36.0); Prothrombin Time 12.0 Seconds (9.0-12.2)
--- NOTE | 2024-10-14 11:22 | PC.SS ---
[employer] conducted bedside contact with the patient conduct initial assessment and to discuss discharge planning.? [employer] utilized user experience manager services due to patient being Mohawk speaking.? Patient confirmed demographic information.? Patient resides at home with spouse, Mane Howard .? Patient is retired.? Patient does not utilize any form of DME to assist with ambulation.? Patient does not utilize home oxygen.? Patient describes the ability to complete ADL?s independently.? Patient identified spouse, Mane Howard; as medical surrogate decision maker.? Patient?s PCP is Radha Moreno.? Patient does not participate with dialysis.? Patient does not possess any specialty providers.? Patient utilizes [facility] for medication services.? Plan is for the patient to return home at the time of discharge.? Family will provide transportation on behalf of the patient. ?No further discharge needs identified by the patient.? No further intervention required at this time, professor of social work will be available to address any further concerns.? Next of Kin: Mane Syedibay D/C Plan: Home
--- NOTE | 2024-10-14 11:31 | ESPR_ITS ---
<Statement entered by Tori Motta MD - 10/14/24 16:50> Patient is seen at bedside currently saturating on room air. Patient denies any chest pain pressure or palpitations. Patient also denies any dizziness nausea or vomiting this morning patient's Troponins were mildly uptrending from 0.255- 0.945. Patient is started on heparin drip and given a loading dose of Plavix 300 milligram, per cardiology recommendation patient will undergo cardiac catheterization tomorrow will place n.p.o. orders after midnight. Patient was seen and examined by me personally. I have directly supervised and reviewed documentation by the team resident and agree with its findings. ------- Plan of care was discussed with the attending, Dr.Bishwakarma Dr. Motta, PGY-2 Documentation for date of: 10/14/24 Subjective Subjective Interval history: 69-year-old female present with great history of osteoarthritis, osteoporosis, hypothyroidism, hypertension, hyperlipidemia, GERD, chronic pain on gabapentin possible PAD. Presented to the ED with cardiac chest pain, dizziness, diaphoresis, weakness. Here for elevated troponin, possible NSTEMI type I versus NSTEMI type II workup and management. Overnight Patient continued to remain asymptomatic, troponin trending-0.292<0.635 <0.945> 0.726. A repeat EKG was unchanged from the admission EKG. Today The patient was seen and examined at bedside with the spouse beside her. She reports no active complaints denies chest pain, shortness of breath, dizziness, weakness. Patient continues to endorse right knee pain, which is currently being managed with Tylenol as needed and gabapentin. Discuss with the patient about possible cardiac cath tomorrow per cardiology consult. Also, per cardiology consult will start the patient on Plavix 300 mg PO QDAY, stop heparin SubQ and switch to IV heparin. Exam Vital Signs Temp Pulse Resp BP Pulse Ox O2 Del Method 97.3 F 68 18 105/57 L 95 Room Air 10/14/24 08:00 10/14/24 08:54 10/14/24 08:00 10/14/24 08:54 10/14/24 08:00 10/14/24 08:00 Narrative Exam Physical Exam: General: Alert, no acute distress. Skin: Warm, dry, intact, no obvious rash. Head: Normocephalic, atraumatic. Eye: Normal conjunctiva, PERRL. Cardiovascular: Regular rate and rhythm, no murmur, +S1/S2. Respiratory: Lungs are clear to auscultation, respirations unlabored, no crackles, no wheezing. Gastrointestinal: Soft, nontender, non-distended. No guarding or rebound tenderness. Extremities: Right knee tender to palpation. mild R knee edema, no cyanosis, no clubbing. 2+ radial pulse bilaterally, 2+ pedal pulse bilaterally. Neuro: No focal deficits observed. Conversant, moving all extremities. No overt cerebellar signs/incoordination. Psychiatric: Cooperative, appropriate affect. Objective Labs 10/14/24 04:43 10/14/24 04:43 Labs: Laboratory Results - last 24 hr 10/13/24 10/13/24 10/13/24 13:34 16:33 17:00 WBC 13.0 H RBC 4.92 Hgb 15.4 Hct 45.0 MCV 92 MCH 31.3 MCHC 34.2 RDW Std Deviation 48.0 H Plt Count 527 H Neut % (Auto) 56 Lymph % (Auto) 29 [place] % (Auto) 11 Eos % (Auto) 2 Baso % (Auto) 1 Neut # (Auto) 7.3 Lymph # (Auto) 3.8 [place] # (Auto) 1.5 H Eos # (Auto) 0.2 Baso # (Auto) 0.1 Immature Gran # (Auto) 0.05 H Absolute Nucleated RBC 0.00 Immature Gran % 0 Nucleated RBC % 0 PT 12.2 INR 1.1 APTT 30.3 Sodium 141 Potassium 3.7 Chloride 105 Carbon Dioxide 24.3 Anion Gap 12 BUN 15 Creatinine 0.8 Estim Creat Clear Calc 52.6 L eGFR > 60 BUN/Creatinine Ratio [address] Glu mg/dL Hemoglobin A1c Calculated Osmolality 283 Calcium 9.5 Corrected Calcium 9.5 Phosphorus Magnesium 1.7 Total Bilirubin 1.0 AST 26 ALT 19 Alkaline Phosphatase 77 Lactate Dehydrogenase 205 Troponin I 0.255 H* 0.292 H* B-Natriuretic Peptide 33 Total Protein 7.4 Albumin 4.5 Globulin 2.9 Albumin/Globulin Ratio 1.6 Triglycerides Cholesterol LDL Cholesterol, Calc HDL Cholesterol Cholesterol/HDL Ratio TSH 1.17 Ur Collection Type Clean Catch Urine Color Yellow Urine Clarity Clear Urine pH 6.5 Ur Specific [place] 1.020 Urine Protein Negative Urine Glucose (UA) Negative Urine Ketones Negative Urine Blood Negative Urine Nitrite Negative Urine Bilirubin Negative Urine Urobilinogen (Auto) Negative Ur Leukocyte Esterase Negative Urine RBC 1 Urine WBC 1 Ur Squamous Epith Cells 1 Urine Bacteria None Hyaline Casts < 1 Urine Opiates Screen Negative Urine Fentanyl Screen Negative Ur Barbiturates Screen Negative U Amphetamin/Meth Scrn Negative U Benzodiazepines Scrn Positive A U Cocaine Metab Screen Negative U Marijuana (THC) Screen Negative 10/13/24 10/14/24 10/14/24 22:27 04:43 10:29 WBC 10.8 RBC 4.82 Hgb 14.8 Hct 44.1 MCV 92 MCH 30.7 MCHC 33.6 RDW Std Deviation 48.6 H Plt Count 472 H D Neut % (Auto) 41 Lymph % (Auto) 41 [place] % (Auto) 14 H Eos % (Auto) 4 Baso % (Auto) 1 Neut # (Auto) 4.4 Lymph # (Auto) 4.4 [place] # (Auto) 1.5 H Eos # (Auto) 0.4 Baso # (Auto) 0.1 Immature Gran # (Auto) 0.03 H Absolute Nucleated RBC 0.00 Immature Gran % 0 Nucleated RBC % 0 PT 12.0 INR 1.1 APTT 33.4 Sodium 141 Potassium 3.5 Chloride 107 Carbon Dioxide 23.6 Anion Gap 10 BUN 13 Creatinine 0.6 Estim Creat Clear Calc 70.1 eGFR > 60 BUN/Creatinine Ratio 22 H Glucose [address] Glu mg/dL 126 Hemoglobin A1c 6.0 Calculated Osmolality 281 Calcium 9.2 Corrected Calcium 9.2 Phosphorus 4.4 Magnesium 1.6 Total Bilirubin 1.3 H AST 23 ALT 16 Alkaline Phosphatase 71 Lactate Dehydrogenase Troponin I 0.635 H* D 0.945 H* D 0.726 H* D B-Natriuretic Peptide Total Protein 6.6 Albumin 4.0 D Globulin 2.6 Albumin/Globulin Ratio 1.5 Triglycerides 207 H Cholesterol 136 LDL Cholesterol, Calc 61 HDL Cholesterol 34 L Cholesterol/HDL Ratio 4.0 TSH Ur Collection Type Urine Color Urine Clarity Urine pH Ur Specific [place] Urine Protein Urine Glucose (UA) Urine Ketones Urine Blood Urine Nitrite Urine Bilirubin Urine Urobilinogen (Auto) Ur Leukocyte Esterase Urine RBC Urine WBC Ur Squamous Epith Cells Urine Bacteria Hyaline Casts Urine Opiates Screen Urine Fentanyl Screen Ur Barbiturates Screen U Amphetamin/Meth Scrn U Benzodiazepines Scrn U Cocaine Metab Screen U Marijuana (THC) Screen Quality Measures Quality Measures none Advance care planning discussed with:: patient and spouse Assessment & Plan Assessment Current Active Medications: Generic Name Dose Route Start Last Admin Trade Name Freq PRN Reason Stop Dose Admin Acetaminophen 650 mg 10/13/24 16:09 10/14/24 00:39 Acetaminophen 325 Mg Tablet PO 11/12/24 16:08 650 mg Q6H PRN Administration PAIN (1-3) & FEVER > 100.4 Aspirin 81 mg 10/14/24 09:00 10/14/24 08:03 Aspirin Ec 81 Mg Tabec PO 11/13/24 08:59 81 mg QDAY DAVONTE Administration Atorvastatin Calcium 40 mg 10/13/24 21:00 10/13/24 20:56 Atorvastatin Calcium 20 Mg Tablet PO 11/12/24 20:59 40 mg HS DAVONTE Administration Clopidogrel Bisulfate 75 mg 10/15/24 09:00 Clopidogrel Bisulfate 75 Mg Tablet PO 11/14/24 08:59 QDAY DAVONTE Gabapentin 100 mg 10/13/24 22:00 10/14/24 05:17 Gabapentin 100 Mg Capsule PO 11/12/24 21:59 100 mg TID DAVONTE Administration Magnesium Sulfate 4 gm in 50 mls @ 12.5 mls/hr 10/14/24 08:11 10/14/24 08:45 Magnesium Sulfate Ivpb IV 10/14/24 12:10 12.5 mls/hr X1 ONE Administration Heparin Sodium/Dextrose 25,000 unit in 250 mls @ 7.408 mls/hr 10/14/24 09:00 Heparin In D5w Ivpb IV 10/28/24 08:59 .Q24H DAVONTE Protocol 12 UNITS/KG/HR Levothyroxine Sodium 88 mcg 10/14/24 06:00 10/14/24 05:17 Levothyroxine Sodium 88 Mcg Tablet PO 11/13/24 05:59 88 mcg ACBR DAVONTE Administration Ondansetron HCl 4 mg 10/13/24 16:09 Ondansetron Inj 2 Mg/Ml Inj 2 Ml IVP 11/12/24 16:08 Q6H PRN NAUSEA OR VOMITING Protocol Pantoprazole Sodium 40 mg 10/14/24 09:00 10/14/24 08:03 Pantoprazole 40 Mg Tablet PO 11/13/24 08:59 40 mg QDAY DAVONTE Administration Sennosides 1 tab 10/14/24 09:00 10/14/24 08:03 Senna Tablet PO 11/13/24 08:59 1 tab QDAY DAVONTE Administration Protocol Plan Mrs.Ana Howard is a 69-year-old female with past medical history of of osteoporosis, osteoarthritis, hypothyroidism, hypertension, GERD, chronic knee pain sleep was brought in by EMS to the ED on 10/13/24 for chest pain, weakness, dizziness. Admitted elevated troponin, NSTEMI type 1 vs NSTEMI type 2 work-up and management #Elevated troponin #ACS/NSTEMI type I versus NSTEMI type II #Hyperlipidemia Patient presents with retrosternal, nonradiating intermittent chest pain.Associated symptoms nausea, diaphoresis, weakness, dizziness during the episode. Troponin on admission is 0.255 repeat troponin is 0.292. Trop trending- 0.292<0.635 <0.945> 0.726. EKG showed left axis deviation, however compared to last EKG there is no significant changes. Cardiology was consulted and recommended to continue to monitor troponin and order Echo. Plan - Cardiology consulted, cardiac cath plan for tomorrow - Start Plavix and heparin IV per cardiology recs - Plan to start n.p.o. at midnight - Continue to trend troponin q6h - Continue atorvastatin 40 mg - Continue to monitor CBC - Continue to monitor BMP - Strict I's and O's - Daily weight monitoring - Echo ordered, pending # Hypothyroidism Patient on home meds levothyroxine for hypothyroidism. TSH 1.17 Plan - Continue home levothyroxine 88 mcg #Primary Hypertension #Dizziness/weakness and nausea- resolved Patient have a history of diagnosed hypertension. Patient felt dizziness and weakness weakness nausea without vomiting while she was outside in the morning sun. She was brought inside by her who measured patient blood pressure to be 90/40. Plan - med rec completed - Continue to monitor blood pressure - Order orthostatic vitals, if positive give IV fluids #Pre-diabetes #Hyperglycemia On admission patient fingerstick blood glucose was 126, she denies any history of diabetes mellitus. The other A1c is 6 A1 OF 6. Low threshold suspicion for prediabetes due to glucose level and A1c level Plan - Outpatient follow-up for workup of prediabetes - Continue to monitor fingerstick glucose level #Leukocytosis-resolved Likely reactive Plan - Continue to monitor CBC Hospital Management: Lines: Peripheral line Diet: Cardiac Bowel: Senna GI prophylaxis: Pantoprazole DVT Prophylaxis: Heparin subQ Disposition: Telemetry for ACS/NSTEMI workup CODE STATUS: Full code Christiana Fischer MD PGY-1, Internal Medicine Patient seen and assessed under supervision of attending physician Dr. Rincon and discuss with senior resident Dr. Motta PGY-2 Attending Provider Attestation/Addendum I attest that I was physically present for the evaluation, physical examination, lab and imaging review of the patient with the residents. I discussed the case with the residents and agree with the findings and plans of care as documented above. At bedside today, patient states she is feeling well and denies any new complaints including chest pain, shortness of breath or palpitations. Saturating well on room air. Continues to be on heparin drip, antiplatelet and statin. Troponin peaked at 0.945. Cardiology following closely, patient is planned for cardiac catheterization tomorrow, appreciate recommendations. Silvia Demarco MD
[2024-10-14] MEDS: HEPARIN SOD INJ 5000 UNIT/ML VIAL 3700 UNIT IV (11:51)
[2024-10-14] MEDS: Heparin/D5w 25K 250 ML Ivpb 25,000 UNIT/250 ML BAG 7.408 UNIT IV (11:52)
[2024-10-14 19:54] LABS: Partial Thromboplastin Time 101.6 Seconds (22.0-36.0)
[2024-10-14] MEDS: ATORVASTATIN CALCIUM 20 MG TABLET 40 MG PO (21:33)
[2024-10-15] VITALS (15 sets, daily range): BP systolic 107–156; BP diastolic 64–94; PULSE 56–78; RESP 12–21; TEMP 35.9–36.5; O2SAT 92–99; BMI 27.2
[2024-10-15 03:24] LABS: Basophils # (Auto) 0.1 Thou/mm3 (0.0-0.2); Basophils % (Auto) 1 % (0-2.5); Eosinophils # (Auto) 0.4 Thou/mm3 (0.0-0.5); Eosinophils % (Auto) 4 % (0-10); Hematocrit 42.8 % (36.0-46.0); Hemoglobin 14.7 g/dL (12.0-16.0); Immature Granulocytes Auto 0.03 Thou/mm3 (0.00-0.00); Lymphocytes # (Auto) 4.6 Thou/mm3 (1.0-4.8); Lymphocytes % (Auto) 42 % (10-50); Mean Corpuscular HGB Conc 34.3 g/dl (31.0-37.0); Mean Corpuscular Hemoglobin 31.4 pg (25.0-35.0); Mean Corpuscular Volume 92 fL (80-100); Monocytes # (Auto) 1.5 Thou/mm3 (0.0-0.8); Monocytes % (Auto) 13 % (0-12); Neutrophils # (Auto) 4.4 Thou/mm3 (1.8-7.7); Neutrophils % (Auto) 40 % (37-80); Nucleated Red Blood Cell # 0.00 Thou/mm3 (0.00-0.00); Nucleated Red Blood Cell % 0 /100 WBC (0); Platelet Count 439 Thou/mm3 (140-440); RDW Standard Deviation 49.0 fL (36.4-46.3); Red Blood Count 4.68 Miln/mm3 (4.00-5.20); White Blood Count 11.0 Thou/mm3 (3.6-11.0)
[2024-10-15 03:44] LABS: Alanine Aminotransferase 17 U/L (10-49); Albumin, Serum 4.0 gm/dL (3.4-4.8); Albumin/Globulin Ratio 1.5 (1.2-2.2); Alkaline Phosphatase 71 U/L (46-116); Anion Gap 9 (7-16); Aspartate Amino Transferase 23 U/L (0-34); BUN/Creatinine Ratio 20 Ratio (12-20); Bilirubin,Total 0.6 mg/dL (0.3-1.2); Blood Urea Nitrogen 12 mg/dL (9-23); Calcium 9.0 mg/dL (8.3-10.6); Calcium (Corrected) 9.0 mg/dL (8.5-10.1); Carbon Dioxide 24.5 mMol/L (20.0-31.0); Chloride 108 mMol/L (98-107); Creatinine (Component) 0.6 mg/dL (0.6-1.3); Estimated Creatinine Clearance 71.6 mL/min (>60); Globulin 2.6 gm/dL (2.3-3.5); Glucose 105 mg/dL (74-106); Magnesium 2.1 mg/dL (1.6-2.6); Osmolality,Calculated 280 (275-295); Potassium 4.2 mMol/L (3.4-5.1); Sodium 141 mMol/L (136-145); Total Protein 6.6 gm/dL (5.7-8.2); eGFR > 60 See Note
[2024-10-15 03:54] LABS: Partial Thromboplastin Time 71.7 Seconds (22.0-36.0)
[2024-10-15] MEDS: LEVOTHYROXINE SODIUM 88 MCG TABLET PO (05:26)
[2024-10-15] MEDS: GABAPENTIN 100 MG CAPSULE PO ×3 (05:30→21:30)
--- NOTE | 2024-10-15 08:43 | PD.CARDCATH ---
Cardiac Cath Procedure Procedure Narrative Date of the procedure 10/15/2024 Title of the procedure 1.left heart catheterization 2.left coronary angiogram 3.right coronary angiogram 4.left ventriculogram 5.conscious sedation 6.radiographic interpretation supervision 7.ultrasound guidance for right radial access 8.complex angioplasty and stent placement to mid RCA Indication for the procedure This is a 69-year-old female with past medical history of hypertension hyperlipidemia Patient was admitted with chest pain Her troponin ruled in for non-ST elevation ND Cardiac cath and cholangiogram recommended Procedure This was done in the cardiac lab under current electrocardiographic monitoring Intermittent blood pressure monitoring right radial access obtained using modified Seldinger technique and ultrasound guidance 6 [place] sheath was placed TIG 4 catheter was used for selective engagement of the left coronary artery TIG 4 catheter was used for selective images right coronary artery TIG 4 catheter used for left ventriculogram Hemodynamics Overall left ventricular systolic function appears normal Approximate ejection fraction 55% End-diastolic pressure was 19 mmHg There is no gradient across the aortic valve Coronary anatomy 1.left main coronary artery appears normal 2.left anterior descending artery has a mid segment lesion about 60 to 70% 3.diagonal appears to show luminal regularities 4.circumflex has minor luminal irregularities in the midsegment 5.right coronary is a dominant vessel, it has a mid segment lesion about 80% 6.RV branch appears to have a 90% ostial proximal lesion 7.posterolateral branches has luminal irregularities Conclusion Borderline lesion noted in the mid LAD Significant lesion noted in the mid RCA We will proceed with intervention of the RCA today Angioplasty and stent placement of the mid RCA complex procedure JR4 guiding catheter used to obtain coaxial access Belt Cutter 50 wire was used to cross the lesion in the RCA A second dispatcher ship pilot 50 wire was placed across the lesion in the RV branch Initially we dilated the RV branch with the threaded balloon up to 14 lauro Subsequently 2.5 x 12 mm balloon was placed across the ostium of the RV branch and dilated up to 12 lauro Subsequently 2 x 12 mm balloon was placed across the mid RCA and dilated up to 4014 lauro Following the 3 x 20 mm balloon was placed across the lesion and dilated up to 14 lauro in the mid RCA 4 x 20 mm stent was placed in the distal regions of the lesion and dilated up to 12 lauro 4 x 15 mm second stent was placed proximal to the first stent in an overlapping fashion and dilated up to 13 lauro Post an angiogram reveals adequate expansion of the entire length of the stent in the RCA Ostium of the RV branch has still has a residual lesion about 80% We will continue medical management for this for now Conclusion Successful angioplasty and stent placement of mid RCA
--- NOTE | 2024-10-15 08:48 | ESPR_ITS ---
Documentation for date of: 10/15/24 Subjective Subjective Interval history: Angioplasty and stent Patient still intermediate lesion in the LAD just will be attended as outpatient Exam Vital Signs Temp Pulse Resp BP Pulse Ox O2 Del Method 97.7 F 58 L 20 129/69 95 Room Air 10/15/24 07:05 10/15/24 07:05 10/15/24 07:05 10/15/24 07:05 10/15/24 07:05 10/15/24 07:05 Routine HEENT Exam Head: Present normocephalic and atraumatic Eye: Present EOMI and PERRL ENT: Present mucous membranes moist Routine Neck Exam Neck: Present supple and trachea midline Routine Respiratory Exam Respiratory: Present chest non-tender, lungs clear, normal breath sounds and no resp distress Routine Cardiovascular Exam Cardiovascular: Present RRR Routine Abdominal Exam Abdominal: Present soft and normoactive bowel sounds Routine Extremities Exam Extremities: Present full ROM Routine Skin Exam Skin: Present intact, dry and warm Routine Neurological Exam Neurological: Present alert, oriented X3 and CN II-XII intact Routine Psychiatric Exam Psychiatric: Present normal affect and normal thought process Objective Labs 10/15/24 03:16 10/15/24 03:16 Labs: Laboratory Results - last 24 hr 10/14/24 10/14/24 10/15/24 10:29 18:44 03:16 WBC 11.0 RBC 4.68 Hgb 14.7 Hct 42.8 MCV 92 MCH 31.4 MCHC 34.3 RDW Std Deviation 49.0 H Plt Count 439 D Neut % (Auto) 40 Lymph % (Auto) 42 [place] % (Auto) 13 H Eos % (Auto) 4 Baso % (Auto) 1 Neut # (Auto) 4.4 Lymph # (Auto) 4.6 [place] # (Auto) 1.5 H Eos # (Auto) 0.4 Baso # (Auto) 0.1 Immature Gran # (Auto) 0.03 H Absolute Nucleated RBC 0.00 Immature Gran % 0 Nucleated RBC % 0 PT 12.0 INR 1.1 APTT 33.4 101.6 H* D 71.7 H D Sodium 141 Potassium 4.2 D Chloride 108 H Carbon Dioxide 24.5 Anion Gap 9 BUN 12 Creatinine 0.6 Estim Creat Clear Calc 71.6 eGFR > 60 BUN/Creatinine Ratio 20 Glucose 105 Calculated Osmolality 280 Calcium 9.0 Corrected Calcium 9.0 Magnesium 2.1 Total Bilirubin 0.6 D AST 23 ALT 17 Alkaline Phosphatase 71 Troponin I 0.726 H* D Total Protein 6.6 Albumin 4.0 Globulin 2.6 Albumin/Globulin Ratio 1.5 Assessment & Plan A&P Narrative Status post PCI to the mid RCA Continue Plavix Time Spent With Patient Time: Total time spent is greater than 50% in coordination of care (as documented) at patient's floor/unit and/or counseling patient:
--- NOTE | 2024-10-15 10:19 | ESPR_ITS ---
<Statement entered by Tori Motta MD - 10/15/24 21:08> Pt is seen at bedside s/p cardiac cath. Pt underwent right and left angiogram and underwent angioplasty and stent placement of the mid RCA. Pt is started on dual antiplatelet therapy with plavix and aspirin. Will continue to monitor today and will plan for discharge tomorrow. Patient was seen and examined by me personally. I have directly supervised and reviewed documentation by the team resident. ------- Plan of care was discussed with the attending, Dr. Dav Motta, PGY-2 Documentation for date of: 10/15/24 Subjective Subjective Interval history: 69-year-old female present with great history of osteoarthritis, osteoporosis, hypothyroidism, hypertension, hyperlipidemia, GERD, chronic pain on gabapentin possible PAD. Presented to the ED with cardiac chest pain, dizziness, diaphoresis, weakness. Here for elevated troponin, possible NSTEMI type I versus NSTEMI type II workup and management. Overnight, No acute events overnight. Patient continued to remain asymptomatic. Remained n.p.o. vitals were stable. Today Patient was seen and examined at the bedside saturation on room air. Labs reviewed and was stable. Patient underwent cardiac cath procedure per recommendation. Cardiac cath findings: left anterior descending artery has a mid segment lesion about 60 to 70%.RV branch appears to have a 90% ostial proximal lesion. Angioplasty and stent placement of the mid RCA. Per cardiology recommendation we will continue Plavix. Exam Vital Signs Temp Pulse Resp BP Pulse Ox O2 Del Method 96.8 F 58 L 13 147/82 H 99 Room Air 10/15/24 08:53 10/15/24 10:00 10/15/24 10:00 10/15/24 10:00 10/15/24 10:10/15/24 10:00 Narrative Exam Physical Exam: General: Alert, no acute distress. Skin: Warm, dry, intact, no obvious rash. Head: Normocephalic, atraumatic. Eye: Normal conjunctiva, PERRL. Cardiovascular: Regular rate and rhythm, no murmur, +S1/S2. Respiratory: Lungs are clear to auscultation, respirations unlabored, no crackles, no wheezing. Gastrointestinal: Soft, nontender, non-distended. No guarding or rebound tenderness. Extremities: Right knee tender to palpation. mild R knee edema, no cyanosis, no clubbing. 2+ radial pulse bilaterally, 2+ pedal pulse bilaterally. Neuro: No focal deficits observed. Conversant, moving all extremities. No overt cerebellar signs/incoordination. Psychiatric: Cooperative, appropriate affect. Objective Labs 10/15/24 03:16 10/15/24 03:16 Labs: Laboratory Results - last 24 hr 10/14/24 10/14/24 10/15/24 10:29 18:44 03:16 WBC 11.0 RBC 4.68 Hgb 14.7 Hct 42.8 MCV 92 MCH 31.4 MCHC 34.3 RDW Std Deviation 49.0 H Plt Count 439 D Neut % (Auto) 40 Lymph % (Auto) 42 Wise % (Auto) 13 H Eos % (Auto) 4 Baso % (Auto) 1 Neut # (Auto) 4.4 Lymph # (Auto) 4.6 Wise # (Auto) 1.5 H Eos # (Auto) 0.4 Baso # (Auto) 0.1 Immature Gran # (Auto) 0.03 H Absolute Nucleated RBC 0.00 Immature Gran % 0 Nucleated RBC % 0 PT 12.0 INR 1.1 APTT 33.4 101.6 H* D 71.7 H D Sodium 141 Potassium 4.2 D Chloride 108 H Carbon Dioxide 24.5 Anion Gap 9 BUN 12 Creatinine 0.6 Estim Creat Clear Calc 71.6 eGFR > 60 BUN/Creatinine Ratio 20 Glucose 105 Calculated Osmolality 280 Calcium 9.0 Corrected Calcium 9.0 Magnesium 2.1 Total Bilirubin 0.6 D AST 23 ALT 17 Alkaline Phosphatase 71 Troponin I 0.726 H* D Total Protein 6.6 Albumin 4.0 Globulin 2.6 Albumin/Globulin Ratio 1.5 Quality Measures Quality Measures none Advance care planning discussed with:: patient and spouse Assessment & Plan Assessment Current Active Medications: Generic Name Dose Route Start Last Admin Trade Name Freq PRN Reason Stop Dose Admin Acetaminophen 650 mg 10/13/24 16:09 10/14/24 12:26 Acetaminophen 325 Mg Tablet PO 11/12/24 16:08 650 mg Q6H PRN Administration PAIN (1-3) & FEVER > 100.4 Aspirin 81 mg 10/14/24 09:00 10/14/24 08:03 Aspirin Ec 81 Mg Tabec PO 11/13/24 08:59 81 mg QDAY DAVONTE Administration Atorvastatin Calcium 40 mg 10/13/24 21:00 10/14/24 21:33 Atorvastatin Calcium 20 Mg Tablet PO 11/12/24 20:59 40 mg HS DAVONTE Administration Clopidogrel Bisulfate 75 mg 10/15/24 09:00 Clopidogrel Bisulfate 75 Mg Tablet PO 11/14/24 08:59 QDAY DAVONTE Gabapentin 100 mg 10/13/24 22:00 10/15/24 05:30 Gabapentin 100 Mg Capsule PO 11/12/24 21:59 100 mg TID DAVONTE Administration Levothyroxine Sodium 88 mcg 10/14/24 06:00 10/15/24 05:26 Levothyroxine Sodium 88 Mcg Tablet PO 11/13/24 05:59 88 mcg ACBR DAVONTE Administration Ondansetron HCl 4 mg 10/13/24 16:09 Ondansetron Inj 2 Mg/Ml Inj 2 Ml IVP 11/12/24 16:08 Q6H PRN NAUSEA OR VOMITING Protocol Pantoprazole Sodium 40 mg 10/14/24 09:00 10/14/24 08:03 Pantoprazole 40 Mg Tablet PO 11/13/24 08:59 40 mg QDAY DAVONTE Administration Sennosides 1 tab 10/14/24 09:00 10/14/24 08:03 Senna Tablet PO 11/13/24 08:59 1 tab QDAY DAVONTE Administration Protocol Plan A 69-year-old female with past medical history of of osteoporosis, osteoarthritis, hypothyroidism, hypertension, GERD, chronic knee pain sleep was brought in by EMS to the ED on 10/13/24 for chest pain, weakness, dizziness. Admitted elevated troponin, NSTEMI type 1 vs NSTEMI type 2 work-up and management # Elevated troponin # ACS/NSTEMI type I versus NSTEMI type II #S/p PCI to mid RCA #Hyperlipidemia Patient presented with retrosternal, nonradiating intermittent chest pain.Associated symptoms nausea, diaphoresis, weakness, dizziness during the episode. Troponin on admission is 0.255 repeat troponin is 0.292. Trop trending- 0.292<0.635 <0.945> 0.726. EKG showed left axis deviation, however compared to last EKG there is no significant changes. Cardiology was consulted and recommended to continue to monitor troponin , order echo, cardiac catherization. Cardiac catheterization procedure on 10/15/2024. Findings of, borderline lesion noted in the mid LAD 60-70%, significant lesion noted in the mid RCA about 90%. Plan - Angioplasty and stent placement of the mid RCA complex procedure- completed - Continue Plavix per cardiology recommendation - PT ordered for - Resume cardiac diet - Continue atorvastatin 40 mg - Continue aspirin 80 mg p.o. daily - Pending Echo # Hypothyroidism Patient on home meds levothyroxine for hypothyroidism. TSH 1.17 Plan - Continue home levothyroxine 88 mcg #Primary Hypertension #Dizziness/weakness and nausea- resolved Patient have a history of diagnosed hypertension. Patient felt dizziness and weakness weakness nausea without vomiting while she was outside in the morning sun. She was brought inside by her who measured patient blood pressure to be 90/40. Negative orthostatic vitals. Plan - med rec completed - Continue to monitor blood pressure - Ordered orthostatic vital were negative- D/c IV fluids #Pre-diabetes #Hyperglycemia On admission patient fingerstick blood glucose was 126, she denies any history of diabetes mellitus. The other A1c is 6 A1. Low threshold suspicion for prediabetes due to glucose level and A1c level Plan - Outpatient follow-up for workup of prediabetes - Continue to monitor fingerstick glucose level #Leukocytosis-resolved Likely reactive Plan - Continue to monitor CBC Hospital Management: Lines: Peripheral line Diet: Cardiac Bowel: Senna GI prophylaxis: Pantoprazole DVT Prophylaxis: SCD Disposition: Telemetry post cardiac cath CODE STATUS: Full code Patient seen and assessed under supervision of attending physician Dr. Demarco and discuss with senior resident Dr. Motta PGY-2 Christiana Fischer MD PGY-1, Internal Medicine Attending Provider Attestation/Addendum I attest that I was physically present for the evaluation, physical examination, lab and imaging review of the patient with the residents. I discussed the case with the residents and agree with the findings and plans of care as documented above. At bedside today, patient states she is feeling better and denies any new complaints. Underwent cardiac catheterization with cardiology today, was found to have 60 to 70% stenosis of LAD mid segment, 80% stenosis of mid segment of right coronary and 90% stenosis of ostial proximal lesion on RV Branch. Patient received 2 stents. Vitals are stable, lab results are also nonconcerning. Resumed her dual antiplatelet and statin. We will monitor her closely today and plan for discharge in next 24 hours. Silvia Demarco MD
--- NOTE | 2024-10-15 11:40 | PC.NURSE ---
Report given to BRENDA Garcia. Patient VSS. A&O x4. Patient being transferred to tele via gurney. No signs of bleeding or hematoma to right wrist. Dressing clean, dry, and intact.
[2024-10-15] MEDS: PANTOPRAZOLE 40 MG TABLET PO (12:09)
[2024-10-15] MEDS: CLOPIDOGREL BISULFATE 75 MG TABLET PO (12:10)
[2024-10-15] MEDS: ASPIRIN EC 81 MG TABEC PO (12:10)
[2024-10-15 14:00] LABS: Partial Thromboplastin Time 36.0 Seconds (22.0-36.0)
--- NOTE | 2024-10-15 16:55 | PC.SS ---
Rounding Note: Cardiac cath procedure conducted, stent placed. Plan to d/c home tomorrow.
[2024-10-15] MEDS: ATORVASTATIN CALCIUM 20 MG TABLET 40 MG PO (21:28)
[2024-10-16] VITALS: BP 104/75; PULSE 70; PULSE 84; RESP 13; TEMP 36.1; O2SAT 96
[2024-10-16 04:00] VITALS: BP 105/67; PULSE 60; PULSE 61; RESP 12; TEMP 36.2; O2SAT 95
[2024-10-16] MEDS: GABAPENTIN 100 MG CAPSULE PO (05:33)
[2024-10-16] MEDS: LEVOTHYROXINE SODIUM 88 MCG TABLET PO (05:33)
[2024-10-16 05:44] VITALS: BMI 26.9
[2024-10-16 06:28] LABS: Basophils # (Auto) 0.1 Thou/mm3 (0.0-0.2); Basophils % (Auto) 1 % (0-2.5); Eosinophils # (Auto) 0.3 Thou/mm3 (0.0-0.5); Eosinophils % (Auto) 3 % (0-10); Hematocrit 43.5 % (36.0-46.0); Hemoglobin 14.8 g/dL (12.0-16.0); Immature Granulocytes Auto 0.05 Thou/mm3 (0.00-0.00); Lymphocytes # (Auto) 3.1 Thou/mm3 (1.0-4.8); Lymphocytes % (Auto) 27 % (10-50); Mean Corpuscular HGB Conc 34.0 g/dl (31.0-37.0); Mean Corpuscular Hemoglobin 31.0 pg (25.0-35.0); Mean Corpuscular Volume 91 fL (80-100); Monocytes # (Auto) 1.5 Thou/mm3 (0.0-0.8); Monocytes % (Auto) 14 % (0-12); Neutrophils # (Auto) 6.4 Thou/mm3 (1.8-7.7); Neutrophils % (Auto) 56 % (37-80); Nucleated Red Blood Cell # 0.00 Thou/mm3 (0.00-0.00); Nucleated Red Blood Cell % 0 /100 WBC (0); Platelet Count 427 Thou/mm3 (140-440); RDW Standard Deviation 48.8 fL (36.4-46.3); Red Blood Count 4.77 Miln/mm3 (4.00-5.20); White Blood Count 11.4 Thou/mm3 (3.6-11.0)
[2024-10-16 06:33] LABS: INR 1.1 (0.9-1.3); Partial Thromboplastin Time 29.6 Seconds (22.0-36.0); Prothrombin Time 11.9 Seconds (9.0-12.2)
[2024-10-16 06:54] LABS: Alanine Aminotransferase 19 U/L (10-49); Albumin, Serum 4.3 gm/dL (3.4-4.8); Albumin/Globulin Ratio 1.5 (1.2-2.2); Alkaline Phosphatase 68 U/L (46-116); Anion Gap 10 (7-16); Aspartate Amino Transferase 24 U/L (0-34); BUN/Creatinine Ratio 15 Ratio (12-20); Bilirubin,Total 0.8 mg/dL (0.3-1.2); Blood Urea Nitrogen 9 mg/dL (9-23); Calcium 9.8 mg/dL (8.3-10.6); Calcium (Corrected) 9.8 mg/dL (8.5-10.1); Carbon Dioxide 22.9 mMol/L (20.0-31.0); Chloride 107 mMol/L (98-107); Creatinine (Component) 0.6 mg/dL (0.6-1.3); Estimated Creatinine Clearance 72.0 mL/min (>60); Globulin 2.8 gm/dL (2.3-3.5); Glucose 99 mg/dL (74-106); Magnesium 1.8 mg/dL (1.6-2.6); Osmolality,Calculated 278 (275-295); Potassium 4.2 mMol/L (3.4-5.1); Sodium 140 mMol/L (136-145); Total Protein 7.1 gm/dL (5.7-8.2); eGFR > 60 See Note
[2024-10-16 08:00] VITALS: BP 107/75; PULSE 64; PULSE 68; RESP 22; TEMP 36.6; O2SAT 93
--- NOTE | 2024-10-16 08:05 | PD.IMPROG ---
Documentation for date of: 10/16/24 Subjective Subjective Interval history: Patient denies chest pain Patient will be discharged from cardiac standpoint Residual lesion in the LAD will be evaluated as outpatient Exam Vital Signs Temp Pulse Resp BP Pulse Ox O2 Del Method 97.2 F 61 12 105/67 95 Room Air 10/16/24 04:00 10/16/24 04:00 10/16/24 04:00 10/16/24 04:00 10/16/24 04:00 10/16/24 04:00 Routine HEENT Exam Head: Present normocephalic and atraumatic Eye: Present EOMI and PERRL ENT: Present mucous membranes moist Routine Neck Exam Neck: Present supple and trachea midline Routine Respiratory Exam Respiratory: Present chest non-tender, lungs clear, normal breath sounds and no resp distress Routine Cardiovascular Exam Cardiovascular: Present RRR Routine Abdominal Exam Abdominal: Present soft and normoactive bowel sounds Routine Extremities Exam Extremities: Present full ROM Routine Skin Exam Skin: Present intact, dry and warm Routine Neurological Exam Neurological: Present alert, oriented X3 and CN II-XII intact Routine Psychiatric Exam Psychiatric: Present normal affect and normal thought process Objective Labs 10/16/24 05:49 10/16/24 05:49 Labs: Laboratory Results - last 24 hr 10/15/24 10/16/24 13:09 05:49 WBC 11.4 H RBC 4.77 Hgb 14.8 Hct 43.5 MCV 91 MCH 31.0 MCHC 34.0 RDW Std Deviation 48.8 H Plt Count 427 Neut % (Auto) 56 Lymph % (Auto) 27 [place]tinger % (Auto) 14 H Eos % (Auto) 3 Baso % (Auto) 1 Neut # (Auto) 6.4 Lymph # (Auto) 3.1 [place] # (Auto) 1.5 H Eos # (Auto) 0.3 Baso # (Auto) 0.1 Immature Gran # (Auto) 0.05 H Absolute Nucleated RBC 0.00 Immature Gran % 0 Nucleated RBC % 0 PT 11.9 INR 1.1 APTT 36.0 D 29.6 Sodium 140 Potassium 4.2 Chloride 107 Carbon Dioxide 22.9 Anion Gap 10 BUN 9 Creatinine 0.6 Estim Creat Clear Calc 72.0 eGFR > 60 BUN/Creatinine Ratio 15 Glucose 99 Calculated Osmolality 278 Calcium 9.8 Corrected Calcium 9.8 Magnesium 1.8 Total Bilirubin 0.8 AST 24 ALT 19 Alkaline Phosphatase 68 Total Protein 7.1 Albumin 4.3 Globulin 2.8 Albumin/Globulin Ratio 1.5 Assessment & Plan A&P Narrative Status post PCI to the mid RCA Continue Plavix Time Spent With Patient Time: Total time spent is greater than 50% in coordination of care (as documented) at patient's floor/unit and/or counseling patient:
[2024-10-16] MEDS: ASPIRIN EC 81 MG TABEC PO (08:50)
[2024-10-16] MEDS: PANTOPRAZOLE 40 MG TABLET PO (08:51)
[2024-10-16] MEDS: CLOPIDOGREL BISULFATE 75 MG TABLET PO (08:51)
--- NOTE | 2024-10-16 10:24 | PC.PT ---
Patient is wondering why patient needs PT evaluation. Patient states she is I and that she has been ambulating back and forth to the bathroom. Patient agreed to participate with PT evaluation and was able to ambulate in the hallway x I.
[2024-10-16 12:00] VITALS: BP 115/65; PULSE 69; PULSE 74; RESP 19; TEMP 36.1; O2SAT 97
--- NOTE | 2024-10-16 13:31 | PC.SS ---
Update: Plan is for the patient to discharge home today.
[2024-10-16 14:00] VITALS: BP 130/80; PULSE 70; RESP 17; TEMP 36.3; O2SAT 97
--- NOTE | 2024-10-16 14:53 | ESDS_ITS ---
<Statement entered by Lissett Young DO - 10/16/24 19:16> I, Lissett Young DO, attest that I was physically present for the elise portions of the service and evaluated the patient with the resident and I reviewed and discussed the case with the resident and agree with the resident's findings and plans of care as documented above <Statement entered by Renaldo Reilly MD - 10/16/24 17:12> Patient was seen and examined by me personally. I have reviewed the below documentation by the team resident and agree with its findings. Discharge plan was discussed with the attending, Dr. Young. Renaldo Reilly MD Internal Medicine, PGY-2 Planned Discharge Date 10/16/24 DS: Providers Provider Date of admission: 10/13/24 16:09 Primary care physician: Radha Moreno PA-C Admitting Provider: Dereck Gray MD Attending Provider on Admission: Lissett Young DO Consults: 10/13/24 14:54 Consult to Cardiology Stat Comment: Consulting Provider: Marti Doe Attending Provider on DC: Dr. Lissett Young DO Discharging Provider: Dr. Lissett Young DO Anticipated date of discharge: 10/16/24 DS: Diagnosis Problem List Completed Was Problem List Reviewed/Reconciled?: Yes Hospital Course Hospital Course Hospital course: Summary Mrs. Howard is a 69-year-old female past medical history of hypertension, osteoporosis, osteoarthritis, hypothyroidism, hyperlipidemia, GERD, chronic back pain on gabapentin possible PAD who presented to the ED on 10/14/24 with chief complaint of cardiac chest pain, dizziness, weakness. Patient was admitted for elevated troponins and cardiac workup and management. Per cardiology requirement EKG was ordered and negative, troponin was uptrending. Due to troponin elevation patient was started on heparin drip and given loading dose of Plavix 300 mg. Underwent cardiac catheterization on 10/15/2024, angioplasty and 2 stent placement of the mid RCA. S/P cath patient noticed a significantly improve in chest pain and was started on dual antiplatelet therapy. Patient otherwise complained of generalized bodyaches secondary to arthritis managed with pain meds. Throughout the hospital course patient patient condition improved remarkably with progression of hospital course. Plan to discharge the patient home since she is stable and responded well to hospital treatment. Discharge recommendation: - Follow-up with Dr. Doe within 1 week of discharge - Continue rest of medication as previously prescribed, please follow instruction further bellow on medication - Residual lesion in the LAD will be evaluated as outpatient - Per cardiology recommendation start: Aspirin 81 mg p.o. daily Atorvastatin 80 mg p.o. every afternoon Coreg 3.125 mg p.o. twice daily Clopidogrel 75 mg p.o. daily Levothyroxine 88 mcg PO - Continue rest of medications as previously prescribed - Return to the ED or call EMS is symptoms return and/or worsen - Residual lesion in the LAD will be evaluated as outpatient Hospital Diagnoses: # NSTEMI type I s/p PCI to mid RCA #Coronary artery disease #Hyperlipidemia #Hypothyroidism #Pre-Diabetes #Thyroid cancer s/p thyroidectomy, by history Case discussed with Attending Physician Dr. Young and senior resident Dr Reilly PGY-2 Christiana Fischer Internal Medicine PGY-1 Disclaimer: This note was dictated by speech recognition. Minor errors in breast surgeon may be present due to voice recognition software. Status at Discharge Functional status at discharge: independent ambulation Overall status at discharge: patient is back to baseline Time Spent with Patient Time attestation: Total time spent providing and/or coordinating discharge services: Time spent: Greater than 30 minutes Exam Vital Signs Temp Pulse Resp BP Pulse Ox O2 Del Method 97.4 F 70 17 130/80 97 Room Air 10/16/24 14:00 10/16/24 14:10/16/24 14:00 10/16/24 14:10/16/24 14:10/16/24 14:00 Narrative Exam Physical Exam: General: Alert, no acute distress, pleasant conversant Skin: Warm, dry, intact, no obvious rash. HEENT: Normocephalic, atraumatic.Normal conjunctiva, PERRL,no scleral icterus Cardiovascular: Regular rate and rhythm, no murmur, +S1/S2. Respiratory: Lungs are clear to auscultation, respirations unlabored, no crackles, no wheezing. Gastrointestinal: Soft, nontender, non-distended. No guarding or rebound tenderness. Extremities: Right knee tender to palpation. No cyanosis, no clubbing. 2+ radial pulse bilaterally, 2+ pedal pulse bilaterally. Neuro: No focal deficits observed. Conversant, moving all extremities. No overt cerebellar signs/incoordination. Psychiatric: Cooperative, appropriate affect. Discharge Plan Plan Patient Disposition: HOME (Self Care) Patient condition on transfer: Stable Care Plan Goals: -Follow up with PCP within 1 week of discharge, if you do not have a primary care physician you can come see us at the [facility] by calling [phone] -Follow up with weld fitter Dr. Doe in 1 week -You have been prescribed a blood thinner, which can cause bleeding so please be careful with falls, if you have an injury or fall please immediately go to the ED -Continue rest of medications as previously prescribed, some of your home medications have been discontinued or on hold, please discuss with your primary care and weld fitter before resuming it. -Return to the ED or call EMS if symptoms return and/or worsen Prescriptions/Referrals Prescriptions/Med Rec: New aspirin 81 mg Tablet,Delayed Release (Dr/Ec) 81 mg PO QDAY 30 Days Qty: 30 3RF clopidogrel 75 mg Tablet 75 mg PO QDAY 30 Days Qty: 30 3RF levothyroxine 88 mcg Tablet 88 mcg PO ACBR Qty: 30 0RF carvedilol [Coreg] 3.125 mg tablet 3.125 mg PO BID Qty: 60 0RF Rx Instructions: must administer with a meal/food atorvastatin 80 mg tablet 80 mg PO QPM Qty: 30 3RF Continued famotidine 20 mg tablet 20 mg PO Q12H Patient Comments: TOME 1 TABLETA POR V A ORAL DOS VECES AL D A gabapentin 100 mg capsule 100 mg PO Q8H Patient Comments: TOME 1 C PSULA POR V A ORAL ZORAN VECES AL D A cetirizine 10 mg tablet 10 mg PO QDAY Patient Comments: TOME 1 TABLETA POR V A ORAL TODOS LOS D Held celecoxib 100 mg capsule 100 mg PO Q24H Hold Instructions: Resume on 10/29/24. please see primary care before resuming Patient Comments: TOME 1 C PSULA POR V A ORAL TODOS LOS D valsartan 40 mg tablet 40 mg PO QDAY Hold Instructions: Resume on 10/29/24. please see primary care before resuming Patient Comments: TOME 1 TABLETA POR V A ORAL TODOS LOS D Discontinued levothyroxine 50 mcg Tablet 50 mcg PO QDAY hydrochlorothiazide 12.5 mg tablet 12.5 mg PO Q24H Patient Comments: TOME 1 TABLETA POR V A ORAL TODOS LOS D simvastatin 20 mg tablet 20 mg PO .QHS Patient Comments: TOME 1 TABLETA POR V A ORAL TODOS LOS D AL ACOSTARSE Referrals: Radha Moreno PA-C [Primary Care Provider] - Marti Doe MD [Physician] - Patient/Caregiver Discharge Instructions Discharge Activity: as per the cardiac rehab Education Materials: Heart Disease Communicate w Partner, CAD, PCI Blood Thinners, PCI FU Appt, PCI Lifestyle, PCI Exercise Safe, Angioplasty and Stent Placement for the Heart Print Language: Moroccan Stand Alone Forms: Jolly Award Info., Patient Portal Info Letter Discharge Order Discharge Orders: Discharge (Routine); Ordered 10/16/24 Ordered By: Tori Motta Quality Discharge Quality Measures none
== END 2024-10-16 14:00 | disposition home or self-care (01) | DRG 322 ==
LOC: SERX 15:07 → SERHOLD 16:31 → S2NX 23:16
PROVIDERS: Internal Medicine; Registered Nurse General Practice; Admitting Provider Internal Medicine; Emergency Provider Emergency Medicine; PCP Physician Assistant; Visit Provider Internal Medicine
PROC: 4A023N7 Measurement of Cardiac Sampling and Pressure, Left Heart, Percutaneous Approach (ICD-10-PCS; principal; 2024-10-15 07:30)
DX: I21.4 Non-ST elevation (NSTEMI) myocardial infarction (principal); I10 Essential (primary) hypertension; F17.210 Nicotine dependence, cigarettes, uncomplicated; E78.5 Hyperlipidemia, unspecified; K21.9 Gastro-esophageal reflux disease without esophagitis; G89.29 Other chronic pain; M81.0 Age-related osteoporosis without current pathological fracture; E89.0 Postprocedural hypothyroidism; M25.569 Pain in unspecified knee; I73.9 Peripheral vascular disease, unspecified; R73.9 Hyperglycemia, unspecified; D72.829 Elevated white blood cell count, unspecified; I25.10 Atherosclerotic heart disease of native coronary artery without angina pectoris; R73.03 Prediabetes; Z79.02 Long term (current) use of antithrombotics/antiplatelets; Z79.82 Long term (current) use of aspirin; Z79.890 Hormone replacement therapy; Z79.899 Other long term (current) drug therapy; Z85.850 Personal history of malignant neoplasm of thyroid; M19.90 Unspecified osteoarthritis, unspecified site
CPT/HCPCS: 36415; 71045; 80053; 80061; 80307; 81001; 83036; 83615; 83735; 83880; 84100; 84443; 84484; 85025; 85610; 85730; 93005; 96372; 97161; 99152; 99153; 99284; A4216; A4649; C1725; C1769; C1874; C1887; C1894; J0168; J0461; J0583; J1643; J1644; J2250; J2310; J2371; J3010; J3475; J3490; Q9967; A9270

== ENCOUNTER → 2024-12-29 | Outpatient (CLI) | payer MEDICARE, MEDICAID, SELFPAY ==
--- NOTE | 2024-12-29 07:30 | XR_ITS ---
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 T2-Weighted sagittal, fat-suppressed images, TR 3,500, TE 62, T2 weighted coronal fat-saturated images, TR 3,500, TE 62 Proton density sagittal sections, TR 1800, TE 31. T-1 weighted coronal images, TR 524, TE 13.0 Findings: Medial meniscus anterior horn intact. Medial meniscus, body horizontal linear tear. Posterior horn medial meniscus large horizontal linear tear communicating inferior articular surface. Lateral meniscus anterior horn is intact Lateral meniscus, body is intact Posterior horn lateral meniscus is intact Anterior cruciate ligament appears intact. Posterior cruciate ligament appears intact. Knee effusion is moderate. Quadriceps and patellar tendons appear intact. There is no evidence of tendinosis. Inflammatory change or fracture of Hoffa's fat pad is not seen. Medial patellar facet demonstrates moderate thinning. Lateral patellar facet cartilage demonstrates moderate thinning. Trochlear cartilage demonstrates moderate thinning. Marrow signal adequate. Medial collateral ligament appears intact. No meniscocapsular separation is seen. Illiotibial band and fibular collateral ligament are intact. Biceps femoris tendons appear intact. Medial femoral condylar articular cartilage demonstrates moderate thinning. Lateral femoral condylar articular cartilage demonstrates moderate thinning. Tibial plateau cartilage demonstrates moderate thinning. Impression: Horizontal linear tears body and posterior horn medial meniscus
== END | disposition home or self-care (01) ==
PROVIDERS: Referring Provider Physician Assistant; Visit Provider Physician Assistant
DX: S83.241A Other tear of medial meniscus, current injury, right knee, initial encounter (principal); X58.XXXA Exposure to other specified factors, initial encounter
CPT/HCPCS: 73721

== ENCOUNTER → 2025-02-09 | Outpatient (CLI) | payer MEDICARE, MEDICAID, SELFPAY ==
--- NOTE | 2025-02-09 09:00 | XR_ITS ---
Examination: Screening digital mammography, bilateral Computer aided detection 3-D breast Tomosynthesis, bilateral Date and time of exam: February 09, 2025, 0847 hours, compared to mammograms dating to April 23, 2017 Indication: Screening Technique: Nonmagnified MLO, CC views of the breasts to been obtained, reconstructed from 3-D Tomosynthesis images. R2 computer aided detection program utilized for evaluation of suspicious masses and/or abnormal calcifications. 3-D Tomosynthesis images obtained. Findings: Scattered areas of fibroglandular density. Degenerating fibroadenoma 12 o'clock position right breast No interval suspicious masses Impression: BI-RADS category II: Benign Findings. Recommend 1 year follow-up mammogram.
== END | disposition home or self-care (01) ==
LOC: CDIM 08:38
PROVIDERS: Referring Provider Nurse Practitioner Family; Visit Provider Nurse Practitioner Family
DX: Z12.31 Encounter for screening mammogram for malignant neoplasm of breast (principal); R92.323 Mammographic fibroglandular density, bilateral breasts
CPT/HCPCS: 77063; 77067

== ENCOUNTER 2025-03-11 08:48 | Outpatient (AMB) | payer MEDICARE, MEDICAID, SELFPAY ==
[2025-03-11 09:09] VITALS: BP 146/94; PULSE 116; RESP 18; TEMP 36.2; O2SAT 98
--- NOTE | 2025-03-11 09:09 | AMB.GYNCLNOT ---
Vital Signs 03/11/25 09:09 Weight 63.106 kg Weight Measurement Method Standing Scale BP 146/94 H Blood Pressure Source Automatic Cuff Blood Pressure Location Left Upper Arm Position Sitting Respiration 18 Pulse 116 H Pulse Source Monitor Temp 97.2 F Temp Source Oral Pulse Oximetry (%) 98 Oxygen Delivery Method Room Air Allergies/Home Meds Allergies & Medications Allergies codeine Allergy (Intermediate, Verified 03/11/25 09:10) ABDOMINAL PAIN Medication Reconciliation celecoxib 100 mg capsule 100 mg PO Q24H 10/13/24 [History Confirmed 03/11/25] Held on 10/16/24. Instructions: Resume on 10/29/24. please see primary care before resuming cetirizine 10 mg tablet 10 mg PO QDAY 10/13/24 [History Confirmed 03/11/25] famotidine 20 mg tablet 20 mg PO Q12H 10/13/24 [History Confirmed 03/11/25] gabapentin 100 mg capsule 100 mg PO Q8H 10/13/24 [History Confirmed 03/11/25] valsartan 40 mg tablet 40 mg PO QDAY 10/13/24 [History Confirmed 03/11/25] Held on 10/16/24. Instructions: Resume on 10/29/24. please see primary care before resuming aspirin 81 mg tablet,delayed release 81 mg PO QDAY 30 days #30 tabs 10/16/24 [Rx Confirmed 03/11/25] atorvastatin 80 mg tablet 80 mg PO QPM #30 tabs 10/16/24 [Rx Confirmed 03/11/25] carvedilol 3.125 mg tablet (Coreg) 3.125 mg PO BID #60 tabs 10/16/24 [Rx Confirmed 03/11/25] clopidogrel 75 mg tablet 75 mg PO QDAY 30 days #30 tabs 10/16/24 [Rx Confirmed 03/11/25] levothyroxine 88 mcg tablet 88 mcg PO ACBR #30 tabs 10/16/24 [Rx Confirmed 03/11/25] Intake Visit Data Collection New Patient or Established: Established Patient (seen at [facility] within 3 years) 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 by Clinical Staff 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 (RN/MA): No Innersole Maker Required: No Do You Feel Safe at Home: Yes Authorities Contacted: N/A PCP or OBGYN visit in last 3 months: Yes Date of Last PCP or OBGYN visit: 10/12/24 Hx Now: No Are you currently on any form of Control: No Pain Present Currently: No Pain Scale Used: Viramontes-Bang/Numerical Pain scale:: 0 Smoking Status Smoking Status: Former smoker Immunizations Flu Vaccine in the Last 12 Months: Yes Flu Vaccine Exclusion Criteria: Already Received 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 Menstrual regularity: regular Flow: normal Monthly: Yes Age at menarche: 11 Menopausal: Yes If menopausal, at what age did it occur: 49 Currently sexually active: Yes If not currently sexually active, have you ever been sexually active: Yes 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: Past Medical History Past Medical History: Yes Hx Cardiac Disorders, Yes Hx Hypertension, No Hx Gastrointestinal Disorders, No Hx Renal Disease, No Hx Diabetes Mellitus Type 1 and No Hx Diabetes Mellitus Type 2 Additional Operations/Hospitalizations (year & reason): h/o cardiac stent and is on clopidogrel Other Relevant History: also hypothyroid and hypertension and high cholesterol Questionnaires Covid-19 Vaccine Questionnaire Has patient been vacinated for Covid-19 Have you been vacinated for Covid-19: Yes PHQ-9 PHQ-2 Over the last 2 weeks, how often have you been bothered by any of the following problems? 1. Little interest or pleasure in doing things: not at all 2. Feeling down, depressed, or hopeless: not at all Total score: 0 PHQ-9 3. Trouble falling or staying asleep, or sleeping too much: Not at all 4. Feeling tired or having little energy: Not at all 5. Poor appetite or overeating: Not at all 6. Feeling bad about yourself - or that you are a failure or have let yourself or your family down: Not at all 7. Trouble concentrating on things, such as reading the newspaper or watching television: Not at all 8. Moving or speaking so slowly that other people could have noticed? - Or the opposite - being so fidgety or restless that you have been moving around a lot more than usual: not at all 9. Thoughts that you would be better off or of hurting yourself in some way: Not at all Total score: 0 If you checked off any problems, how difficult have these problems made it for you to do your work, take care of things at home, or get along with other people?: not difficult at all Source: Developed by Jean Pierre Sharpeet B.W. Edgar, Onesimo Joyce and colleagues, with an educational phillip from [employer]. Depression screen completed yes Social History Living Situation History Housing: House Tobacco History Smoking Status: Former smoker Alcohol History Alcohol Intake: Former Alcohol Intake Frequency: holidays/special occasions only Domestic Abuse History Do You Feel Safe at Home: Yes History of Present Illness HPI Narrative 69 years old P3 , postmenopausal with incontinence and prolapse , referred for consultation and treatment from [facility] Review of Systems Review of Systems Systems Reviewed: All systems reviewed, normal except as documented Genitourinary Genitourinary: Reports system reviewed and no additional complaints, except as documented, Reports as per HPI, Reports urinary incontinence and Reports other (genital prolapse ) Exam Narrative Physical exam: Alert and oriented x 3 no shortness of breath Pain no chest pain no palpitations No CVAT Abdomen nontender, normal bowel sounds No guarding no rigidity No hernias Pelvic exam bladder prolapse moderate cystocele in supine position.NO KEI seen on coughing , uterus small / no adnexal masses and atrophic vagina no uterine descent Office Procedures [facility] LOC & Office Proc's Nursing/Assessment Patient Status: Established Patient OB Clinic Nursing Assessment: Medication Reconciliation, Update PMH in EMR and Vital Signs OB Clinic Coordination of Care: Complex Care and Chronic Disease 1-5, Consent,records obtained, informed consent, Education Simp Pt/Fam, Lab and Imaging orders, Results/Orders obtained and Staff clarify orders Miscellaneous Interventions: Pelvic no cultures Established Patient Charge Established Patient Point Assignment: 115 Established Patient Point Charge: EP Level 3 (80-115) Assessment & Plan Diagnosis / Problem List (1) CAD (coronary artery disease): Status: Acute Qualifiers: Associated angina: unspecified whether angina present Coronary Disease-Associated Artery/Lesion type: unspecified vessel or lesion type [place] vs. transplanted heart: [place] heart Qualified Code(s): I25.10 - Atherosclerotic heart disease of [place] coronary artery without angina pectoris (2) Cystocele without uterine prolapse: Status: Acute Additional Plan trial of pessary / will try Ring Pessary 2.25 cm / once pessary sizer is available and will call patient when kit is available / Patient is sexually active and will need to learn pessary management Advanced Care Planning Advance care planning discussed with:: patient
== END 2025-03-11 09:28 | disposition home or self-care (01) ==
LOC: HODSOBC 08:48
PROVIDERS: Supervising Provider Obstetrics & Gynecology; Visit Provider Obstetrics & Gynecology
DX: N81.10 Cystocele, unspecified (principal); I25.10 Atherosclerotic heart disease of native coronary artery without angina pectoris; I10 Essential (primary) hypertension; E03.9 Hypothyroidism, unspecified; E78.00 Pure hypercholesterolemia, unspecified; Z78.0 Asymptomatic menopausal state; Z87.891 Personal history of nicotine dependence; Z79.02 Long term (current) use of antithrombotics/antiplatelets; Z79.899 Other long term (current) drug therapy; Z79.890 Hormone replacement therapy; Z88.5 Allergy status to narcotic agent
CPT/HCPCS: 99213; G0463